=== PATIENT | female | born 1990 | race Caucasian/White ===

== ENCOUNTER 2017-08-01 19:06 | Emergency (ER) | END 2017-08-01 20:14 | disposition home or self-care (01) ==

== ENCOUNTER 2017-08-10 08:27 | Emergency (ER) | END 2017-08-10 09:15 | disposition home or self-care (01) ==

== ENCOUNTER 2018-10-06 20:54 | Emergency (ER) | payer BC ==
[~2018-10-06] VITALS: Ht 170.2 cm; Wt 92.2 kg
[~2018-10-06 20:54] MED LIST: ACET500C5 PO; AMOX500C2 PO; BENZ1LOZ52 MM; CETI1TAB6 PO; FAMO-96 PO; IBUP-1542 PO; NO MEDS; TYL500 PO
[2018-10-06 21:00] VITALS: BP 129/59; PULSE 83; RESP 18; Ht 170.2 cm; Wt 92.2 kg
[2018-10-06] MEDS ORDERED: KETOROLAC 30 MG INJ IM STA (22:36)
[2018-10-06] MEDS ORDERED: DEXAMETHASONE 10 MG/ML 1 ML INJ IM ONE (23:00)
[2018-10-06] MEDS ORDERED: IBUP-1542 PO (23:14)
[2018-10-06] MEDS ORDERED: NAPR-985 PO (23:14)
[2018-10-06] MEDS ORDERED: PRED20TA PO (23:14)
--- NOTE | 2018-10-06 23:19 | ERD ---
ER Documentation Chief Complaint Chief Complaint low back pain while bending yesterday HPI 28-year-old female with no reported past medical history who presents with complaint of lower back pain. States pain began yesterday after she was bending down and felt a pull in her lower back. Had a similar episode several years ago. Describes sharp pain which has made ambulation difficult secondary to pain. She otherwise denies lower extremity paresthesias, weakness, urinary or bowel incontinence. Took ibuprofen which helped somewhat with pain. ROS All systems reviewed and are negative except as per history of present illness. Medications Home Meds Active Scripts Ibuprofen* (Motrin*) 600 Mg Tab, 600 MG PO Q6, #30 TAB Prov:MARYSOL MATHUR-C 10/06/18 Prednisone* (Prednisone*) 20 Mg Tab, 40 MG PO DAILY for 4 Days, TAB Prov:MARYSOL MATHUR-C 10/06/18 Naproxen* (Naprosyn*) 500 Mg Tablet, 500 MG PO BID PRN for PAIN AND/OR INFLAMMATION, #30 TAB Prov:MARYSOL MATHUR-C 10/06/18 Acetaminophen* (Tylenol*) 500 Mg Tab, 500 MG PO Q4H PRN for MILD PAIN LEVEL 1-3, #30 TAB Prov:SALOMÓN BOTELLO-C 08/10/17 Famotidine* (Pepcid*) 20 Mg Tablet, 20 MG PO DAILY, #10 TAB Prov:SALOMÓN BOTELLO-C 08/10/17 Benzocaine/Menthol* (Cepacol* Sore Throat Lozenges) 1 Each Lozenge, 1 EACH MM q2h PRN for SORE THROAT, #14 LOZENGE Prov:SALOMÓN BOTELLO-C 08/10/17 Cetirizine/Pseudoephedrine (Zyrtec-D) 5-120 Mg Tab.er.12h, 1 TAB PO Q12, #20 TAB Prov:SALOMÓN BOTELLO-C 08/10/17 Amoxicillin* (Amoxicillin*) 500 Mg Cap, 500 MG PO TID for 10 Days, CAP Prov:VICTORIANO PRICE NP 08/01/17 Acetaminophen* (Tylophen*) 500 Mg Capsule, 1 CAP PO Q6H PRN for PAIN AND OR ELEVATED TEMP, #20 CAP Prov:VICTORIANO PRICE MENTAL RETARDATION NURSE 08/01/17 Ibuprofen* (Motrin*) 600 Mg Tab, 600 MG PO Q6H PRN for PAIN AND OR ELEVATED TEMP, #30 TAB Prov:VICTORIANO PRICE MENTAL RETARDATION NURSE 08/01/17 Reported Medications [No Meds] No Conflict Check 03/21/12 Allergies Allergies: Coded Allergies: No Known Drug Allergy (Verified Allergy, Unknown, 03/21/12) PMhx/Soc History of Surgery: Yes (CYST ON BACK) Hx Alcohol Use: Yes Hx Substance Use: No Hx Tobacco Use: No Smoking Status: Never smoker FmHx Family History: No diabetes, No coronary disease, No other Physical Exam Vitals Vital Signs Date Temp Pulse Resp B/P (MAP) Pulse Ox O2 O2 Flow FiO2 Time Delivery Rate 10/06/18 99.4 83 18 129/59 99 21:00 (82) Physical Exam I have reviewed the triage vital signs. Const: Well nourished, well developed, appears stated age Eyes: PERRL, no conjunctival injection HENT: NCAT, Neck supple without meningismus CV: RRR, Warm, well-perfused extremities RESP: CTAB, Unlabored respiratory effort GI: soft, non-tender, non-distended, no masses MSK: No gross deformities appreciated Back Exam: Skin: No bruising or rash Compartments: Soft Motor: Normal flexion and extension of bilateral hip/knee/ankle/foot Sensation: Intact to light touch throughout Bones: No midline TTP Skin: Warm, dry. No rashes Neuro: grossly non focal Psych: Appropriate mood and affect. Results 24 hrs Laboratory Tests Test 10/06/18 22:57 POC Beta HCG, Qualitative NEGATIVE Current Medications Medications Dose Sig/Catrachita Start Time Status Last (Trade) Ordered Route PRN Stop Time Admin Dose Reason Admin 10 mg ONCE ONCE 10/06/18 DC 10/06/18 Dexamethasone IM 23:00 23:03 (Decadron) 10/06/18 23:01 Ketorolac 30 mg ONCE STAT 10/06/18 DC 10/06/18 Tromethamine IM 22:36 23:04 (Toradol) 10/06/18 22:38 Procedures/MDM 28-year-old presents with complaint of lower back pain. Low suspicion for acute cord compression or cauda equina at this time, given presentation and symptoms, including epidural abscess or hematoma. Patient has no history of malignancy, active or distant history. Patient has no unexplained weight loss. No recent fevers, rigors, malaise, or recent infection. No history of IVDU or skin- popping. Patient does not have any history concerning for saddle anesthesia/perianal sensory loss or complaining of decreased rectal tone. Patient does not have urinary retention or inability to control urine from overflow. Patient has no tenderness overlying spinous process. Patient has no focal weakness on examination. ED course: Toradol, Decadron, will discharge with NSAIDs and short course of steroids Given exam and history, low suspicion for cord compression, cauda equina, epidural abscess/hematoma. Distally neurovascularly intact. Query likely musculoskeletal component. Discussed pain control,and follow up with PMD. Cautious return precautions discussed w/ full understanding DISPOSITION PLAN: We discussed follow up with the patient's primary care doctor within 24 to 48 hours. Patient counseled regarding my diagnostic impression and care plan. Prior to discharge all questions answered. Pt agrees with treatment plan and understands strict return precautions. Precautionary instructions provided including instructions to return to the ER if not improving or for any worsening or changing symptoms or concerns. Disclaimer: Inadvertent spelling and grammatical errors are likely due to EHR/dictation software use and do not reflect on the overall quality of patient care. Also, please note that the electronic time recorded on this note does not necessarily reflect the actual time of the patient encounter. Departure Diagnosis: Primary Impression: Back pain Condition: Stable Patient Instructions: Back Pain (Acute Or Chronic) Referrals: SPEEDY XIAO (PCP) MARYSOL MATHUR PA-C October 06, 2018 23:19
== END 2018-10-07 00:18 | disposition home or self-care (01) ==
LOC: FTE 20:54
DX: M54.5 Low back pain (principal)
CPT/HCPCS: 81025; 96372; 99284; J1100; J1885